=== PATIENT | male | born 1955 | race Caucasian/White ===

== ENCOUNTER 2018-06-07 12:42 | Emergency (ER) | payer OTHER ==
[~2018-06-07] VITALS: Ht 172.7 cm; Wt 76.4 kg
[2018-06-07 13:20] VITALS: BP 134/83
--- NOTE | 2018-06-07 13:22 | NUR ---
PT AMBULATES BACK TO THE LOBBY
--- NOTE | 2018-06-07 14:09 | NUR ---
PT TO ER BED 5
--- NOTE | 2018-06-07 15:02 | NUR ---
PT TO ER CHAIR E
--- NOTE | 2018-06-07 15:23 | NUR ---
BIB SELF WITH C/O PRODUCTIVE COUGH X 3 DAYS WITH WHITE/GREEN SPUTUM, ALSO C/O RINGING ON THE RT EAR AND LT EAR PAIN 4/10 AND HEARING LOSS. HAS BEEN TAKING OTC COUGH MEDICINE WITH NO RELIEF. AWAKE AND ALERT, ACTING APPROPRIATE, LUNG SOUNDS DIMINISHED BILAT THROUGHOUT. RESPIRATRIONS EVEN UNLABORED. NO MURMUR PRESENT.
[2018-06-07] MEDS ORDERED: ALBUTEROL SULFATE/IPRATROPIU 3 ML SOL IH ONE (15:40)
[2018-06-07] MEDS ORDERED: cefTRIAXone 1,000 MG in LIDOCAINE 1% ***ER ONLY *** 2.1 ML IM ONE (15:40)
[2018-06-07] MEDS ORDERED: DEXAMETHASONE 10 MG/ML VIAL IM ONE (15:40)
[2018-06-07] MEDS ORDERED: FAMOTIDINE 20 MG TAB PO ONE (15:40)
[2018-06-07] MEDS ORDERED: hydrOXYzine HCL 25 MG TAB PO ONE (15:40)
--- NOTE | 2018-06-07 15:40 | NUR ---
PT TAKEN TO XRAY VIA WC
[2018-06-07] MEDS ORDERED: cefTRIAXone 1,000 MG VIAL ONE (15:58)
[2018-06-07] MEDS ORDERED: LIDOCAINE MPF 1% 5mL VIAL ONE (15:59)
--- NOTE | 2018-06-07 16:00 | NUR ---
EDMD AT BEDSIDE PERFORMING MSE
[2018-06-07 17:27] VITALS: BP 135/75
--- NOTE | 2018-06-07 17:27 | NUR ---
Patient discharged with v/s stable. Written and verbal after care instructions given and explained. Patient alert, oriented and verbalized understanding of instructions. Ambulatory with steady gait. All questions addressed prior to discharge. ID band removed. Patient advised to follow up with PMD. Rx of LEVAQUIN, PREDNISONE given. Patient educated on indication of medication including possible reaction and side effects. Opportunity to ask questions provided and answered.
== END 2018-06-07 17:27 | disposition home or self-care (01) ==
LOC: MED 12:42
DX: J44.1 Chronic obstructive pulmonary disease with (acute) exacerbation (principal); H93.13 Tinnitus, bilateral; F17.210 Nicotine dependence, cigarettes, uncomplicated; Z85.46 Personal history of malignant neoplasm of prostate
CPT/HCPCS: 71046; 94640; 96372; 99283; J0696; J1100; J2001; J7620